=== PATIENT | female | born 1990 | race Caucasian/White ===

== ENCOUNTER 2017-04-23 06:48 | Emergency (ER) | payer OTHER ==
[~2017-04-23] VITALS: Ht 152.4 cm; Wt 106.6 kg
[~2017-04-23 06:48] MED LIST: NECON1 TA1 PO; NIFEREX-150 CAP1 CAP PO
[2017-04-23] MEDS ORDERED: ADDERALL PO (07:00)
== END 2017-04-23 08:02 | disposition home or self-care (01) ==
LOC: SED 06:48
DX: S46.912A Strain of unspecified muscle, fascia and tendon at shoulder and upper arm level, left arm, initial encounter (principal); X50.9XXA Other and unspecified overexertion or strenuous movements or postures, initial encounter; Y93.89 Activity, other specified; Y92.69 Other specified industrial and construction area as the place of occurrence of the external cause
CPT/HCPCS: 96372; 99283; J1885